=== PATIENT | male | born 1990 | race Two or more races ===

== ENCOUNTER 2018-11-27 19:39 | Emergency (ER) | payer SELFPAY ==
[~2018-11-27] VITALS: Ht 190.5 cm; Wt 172.4 kg
[2018-11-28 08:23] VITALS: BP 141/97
== END 2018-11-28 08:37 | disposition home or self-care (01) ==
LOC: ER 19:42
DX: M25.572 Pain in left ankle and joints of left foot (principal); F12.10 Cannabis abuse, uncomplicated; F17.210 Nicotine dependence, cigarettes, uncomplicated; E66.01 Morbid (severe) obesity due to excess calories; Z68.42 Body mass index [BMI] 45.0-49.9, adult; Y08.89XA Assault by other specified means, initial encounter; Y93.89 Activity, other specified; Y92.89 Other specified places as the place of occurrence of the external cause; Y99.8 Other external cause status
CPT/HCPCS: 71046; 73030; 73502; 73562; 73600

== ENCOUNTER 2019-01-17 10:28 | Emergency (ER) | payer MEDICAID, OTHER ==
[~2019-01-17] VITALS: Ht 190.5 cm; Wt 195.0 kg
[2019-01-17 10:28] VITALS: BP 149/94
[2019-01-17 11:29] LABS: Basophils # (auto) 0 uL; Basophils % (auto) 0.7 % (0.0-2.0); Eosinophils # (auto) 0.1 uL; Eosinophils % (auto) 0.9 % (0.0-7.0); Hemoglobin 15.7 g/dL (13.5-17.5); Lymphocytes # (auto) 1.6 uL; Lymphocytes % (auto) 25.4 % (10.0-50.0); Mean Corpuscular Hemoglobin 31.3 pg (28.0-32.0); Mean Corpuscular Hgb Conc. 34.2 g/dL (32.0-36.0); Mean Corpuscular Volume 91.5 fL (80.0-100.0); Monocytes # (auto) 0.5 uL; Monocytes % (auto) 7.6 % (0.0-12.0); Neutrophils # (auto) 4.1 uL; Neutrophils % (auto) 65.4 % (37.0-80.0); Nucleated Red Blood Cells % 0.1 %; Platelet Count (auto) 266 10^3/uL (140-450); Red Blood Cells 5.03 10^6/uL (4.5-5.90); Red Cell Distribution Width 13.5 % (11.8-14.3); White Blood Cell 6.3 10^3/uL (4.4-10.8)
[2019-01-17 11:46] LABS: Albumin 3.7 g/dL (3.4-5.0); Anion Gap 3 (5-15); Blood Alcohol < 3.0 mg/dL (0-5); Blood Urea Nitrogen 10 mg/dL (7-18); Calcium 8.9 mg/dL (8.5-10.1); Carbon Dioxide 29 mmol/L (21-32); Chloride 108 mmol/L (98-107); Glucose 96 mg/dL (74-106); Potassium 3.9 mmol/L (3.5-5.1); Sodium 140 mmol/L (136-145)
[2019-01-17 11:50] LABS: Alanine Aminotransferase 81 U/L (16-61); Alkaline Phosphatase 110 U/L (45-117); Aspartate Aminotransferase 40 U/L (15-37); BUN/Creatinine Ratio 11.6; Bilirubin, Total 0.5 mg/dL (0.2-1.0); GFR African American 135 mL/min; GFR Non-African American 112 mL/min; Total Protein 7.8 g/dL (6.4-8.2)
== END 2019-01-17 16:36 | disposition home or self-care (01) ==
LOC: ER 10:28 → EDBD 10:28 → ER 16:36
DX: R51 Headache (principal); M54.6 Pain in thoracic spine; F07.81 Postconcussional syndrome; F17.210 Nicotine dependence, cigarettes, uncomplicated; F12.90 Cannabis use, unspecified, uncomplicated
CPT/HCPCS: 36415; 70450; 80053; 80320; 85025